=== PATIENT | male | born 1970 | race Caucasian/White ===

== ENCOUNTER 2017-01-31 15:11 | Emergency (ER) | payer OTHER ==
[~2017-01-31] VITALS: Ht 167.6 cm; Wt 83.0 kg
[~2017-01-31 15:11] MED LIST: ANAPROX275 MG PO; BENTYL20 MG PO; BUTRANS1 EAC1 TD; HYDROCODON-ACE1 EAC7 PO; IBU-200200 MG PO; LISINOPRIL10 MG PO; MOBIC15 MG PO; MOTRIN600 MG PO; NO HOME MEDICATIONS; OXYCODONE-APAP1 EAC6 PO; PEN-VEE K,VEET500 MG PO; PERCOCET 7.51 TABLET PO; VITAMINS; ZOFRAN4 MG PO
[2017-01-31 15:49] LABS: HEMATOCRIT 43.4 % (38.0-50.0); MCH 30.3 PG (29.0-34.0); MCV 86.6 FL (86-99); MEAN PLAT.VOLUME 9.3 uM^3 (9.0-12.4); PLATELET COUNT 324 K/uL (156-360); RBC DIS.WIDTH-CV 11.9 % (11.8-14.6); RBC DIS.WIDTH-SD 38.1 % (39-53); RED BLOOD COUNT 5.01 M/uL (4.00-5.50); WHITE BLOOD COUNT 7.1 K/uL (4.1-10.2)
[2017-01-31 15:59] LABS: CHLORIDE 111 mEq/L (99-109); POTASSIUM 4.2 mEq/L (3.7-5.4); SODIUM 142 mEq/L (136-147)
[2017-01-31 16:01] LABS: GLUCOSE 114 mg/dL (70-99)
[2017-01-31 16:02] LABS: ANION GAP 10 MEQ/L (2-14)
[2017-01-31 16:04] LABS: ALKALINE PHOSPHATASE 72 IU/L (3-129); GFR ESTIMATE (CALCULATED) > 59 mL/min/
[2017-01-31 16:05] LABS: UREA NITROGEN (BUN) 10 mg/dL (9-23)
[2017-01-31 16:08] LABS: LIPASE 71 U/L (1.0-51.0)
[2017-01-31 16:44] LABS: TOTAL BILIRUBIN 0.4 mg/dL (0.0-1.0)
[2017-01-31 17:41] LABS: ADD MIUA? YES; BILIRUBIN NEGATIVE; BLOOD NEGATIVE; COLOR AMBER ((YELLOW)); GLUCOSE (STRIP) NEGATIVE; KETONES NEGATIVE; LEUKOCYTES NEGATIVE; NITRITE NEGATIVE; PROTEIN (STRIP) 30; SPECIFIC GRAVITY 1.025 (1.000-1.030); UROBILINOGEN 0.2 MG/DL (0.2-1.0)
[2017-01-31 17:46] LABS: BACTERIA RARE /HPF; EPITHELIAL CELLS NONE SEEN /HPF; MUCUS 3+ /LPF; RED BLOOD CELLS 0-5 /HPF (0-5); UCUL ADDED? NO; WHITE BLOOD CELLS 0-5 /HPF (0-5)
[2017-01-31] MEDS ORDERED: ZOFRAN4 MG PO (19:17)
[2017-01-31 20:03] VITALS: BP 145/65
== END 2017-01-31 20:04 | disposition home or self-care (01) ==
LOC: EME 15:11
PROVIDERS: Nurse Practitioner Family
DX: R10.9 Unspecified abdominal pain (principal); B17.9 Acute viral hepatitis, unspecified; N50.812 Left testicular pain; I10 Essential (primary) hypertension
CPT/HCPCS: 74177; 76870; 80053; 81003; 83690; 85027; 99281; 99285; J1885; J2270; J2405; J7030

== ENCOUNTER 2017-02-27 11:59 | Emergency (ER) | payer OTHER ==
[~2017-02-27] VITALS: Ht 167.6 cm; Wt 81.9 kg
[2017-02-27 13:28] LABS: BILIRUBIN NEGATIVE; BLOOD NEGATIVE; COLOR YELLOW ((YELLOW)); GLUCOSE (STRIP) NEGATIVE; KETONES NEGATIVE; LEUKOCYTES NEGATIVE; NITRITE NEGATIVE; PROTEIN (STRIP) NEGATIVE; SPECIFIC GRAVITY 1.011 (1.000-1.030); UROBILINOGEN 0.2 MG/DL (0.2-1.0)
[2017-02-27 13:33] LABS: ADD MIUA? NO; UCUL ADDED? NO
[2017-02-27 14:00] LABS: HEMATOCRIT 40.8 % (38.0-50.0); MCH 30.2 PG (29.0-34.0); MCHC 34.3 G/DL (30.0-36.0); MCV 87.9 FL (86-99); MEAN PLAT.VOLUME 9.4 uM^3 (9.0-12.4); PLATELET COUNT 333 K/uL (156-360); RBC DIS.WIDTH-CV 12.1 % (11.8-14.6); RBC DIS.WIDTH-SD 39.1 % (39-53); RED BLOOD COUNT 4.64 M/uL (4.00-5.50); WHITE BLOOD COUNT 7.6 K/uL (4.1-10.2)
[2017-02-27 14:08] LABS: CHLORIDE 104 mEq/L (99-109); SODIUM 136 mEq/L (136-147)
[2017-02-27 14:09] LABS: GLUCOSE 96 mg/dL (70-99)
[2017-02-27 14:11] LABS: ANION GAP 9 MEQ/L (2-14)
[2017-02-27 14:13] LABS: GFR ESTIMATE (CALCULATED) > 59 mL/min/
[2017-02-27 14:14] LABS: UREA NITROGEN (BUN) 13 mg/dL (9-23)
[2017-02-27 14:37] VITALS: BP 126/72
[2017-02-28 13:22] LABS: CHLAMYDIA TRACHOMATIS NEGATIVE; NEISSERIA GONORRHOEAE NEGATIVE
== END 2017-02-27 14:38 | disposition home or self-care (01) ==
LOC: EME 11:59
PROVIDERS: Physician Assistant
DX: R30.0 Dysuria (principal); I10 Essential (primary) hypertension
CPT/HCPCS: 80048; 81003; 85027; 87086; 87491; 87591; 99281; 99284; J0696

== ENCOUNTER 2017-03-07 11:04 | Emergency (ER) | payer OTHER ==
[~2017-03-07] VITALS: Ht 167.6 cm; Wt 81.1 kg
[2017-03-07 12:14] LABS: HEMATOCRIT 44.3 % (38.0-50.0); MCH 30.2 PG (29.0-34.0); MCHC 34.1 G/DL (30.0-36.0); MCV 88.6 FL (86-99); MEAN PLAT.VOLUME 9.6 uM^3 (9.0-12.4); PLATELET COUNT 331 K/uL (156-360); RBC DIS.WIDTH-CV 12.3 % (11.8-14.6); WHITE BLOOD COUNT 8.4 K/uL (4.1-10.2)
[2017-03-07 12:23] LABS: CHLORIDE 107 mEq/L (99-109); POTASSIUM 4.1 mEq/L (3.7-5.4); SODIUM 141 mEq/L (136-147)
[2017-03-07 12:25] LABS: GLUCOSE 130 mg/dL (70-99)
[2017-03-07 12:27] LABS: ANION GAP 8 MEQ/L (2-14)
[2017-03-07 12:29] LABS: GFR ESTIMATE (CALCULATED) > 59 mL/min/
[2017-03-07 12:30] LABS: UREA NITROGEN (BUN) 12 mg/dL (9-23)
[2017-03-07 14:05] LABS: ADD MIUA? YES; BILIRUBIN NEGATIVE; BLOOD NEGATIVE; COLOR AMBER ((YELLOW)); GLUCOSE (STRIP) NEGATIVE; KETONES 5; LEUKOCYTES NEGATIVE; NITRITE NEGATIVE; PROTEIN (STRIP) 100; SPECIFIC GRAVITY 1.026 (1.000-1.030); UROBILINOGEN 0.2 MG/DL (0.2-1.0)
[2017-03-07 14:23] LABS: BACTERIA RARE /HPF; CELLULAR CASTS 0-5 /LPF; EPITHELIAL CELLS NONE SEEN /HPF; MUCUS 4+ /LPF; RED BLOOD CELLS 0-5 /HPF (0-5); UCUL ADDED? NO; WHITE BLOOD CELLS 0-5 /HPF (0-5)
[2017-03-07] MEDS ORDERED: TORADOL10 MG PO (16:35)
[2017-03-07] MEDS ORDERED: BACTRIM,SEPT1 TABLET PO (16:35)
[2017-03-07 17:16] VITALS: BP 110/68
== END 2017-03-07 17:17 | disposition home or self-care (01) ==
LOC: EME 11:04
DX: R30.0 Dysuria (principal); R10.9 Unspecified abdominal pain; I10 Essential (primary) hypertension; G89.29 Other chronic pain
CPT/HCPCS: 74177; 80048; 81003; 85027; 87086; 99281; 99285; J1885; J3010; J7030

== ENCOUNTER 2017-09-05 02:39 | Emergency (ER) | payer OTHER ==
[~2017-09-05] VITALS: Ht 167.6 cm; Wt 89.9 kg
[~2017-09-05 02:39] MED LIST changes: +BACTRIM,SEPT1 TABLET PO; +DIFLUCAN200 MG PO; +TORADOL10 MG PO
[2017-09-05 02:49] VITALS: BP 120/70
== END 2017-09-05 04:47 | disposition left against medical advice (07) ==
LOC: EME 02:39
DX: R00.2 Palpitations (principal); Z53.21 Procedure and treatment not carried out due to patient leaving prior to being seen by health care provider
CPT/HCPCS: 80053; 83690; 85027; 93005

== ENCOUNTER 2017-10-23 03:14 | Emergency (ER) | payer SELFPAY ==
[~2017-10-23] VITALS: Ht 167.6 cm; Wt 86.1 kg
[2017-10-23 03:54] LABS: BASOPHIL (%) 0.5 % (0-1); EOSINOPHIL (%) 1.6 % (0-5); EOSINOPHIL COUNT 0.1 K/uL (0-0.3); HEMATOCRIT 41.7 % (38.0-50.0); HEMOGLOBIN 14.5 G/DL (12.5-16.6); IMMATURE GRANULOCYTE (%) 0.2 % (0.0-0.7); LYMPHOCYTE (%) 35.6 % (15-42); LYMPHOCYTE COUNT 2.3 K/uL (1.0-2.8); MCH 30.5 PG (29.0-34.0); MCHC 34.8 G/DL (30.0-36.0); MCV 87.6 FL (86-99); MONOCYTE (%) 12.6 % (3-12); MONOCYTE COUNT 0.8 K/uL (0-0.8); NEUTROPHIL (%) 49.5 % (45-76); NEUTROPHIL COUNT 3.2 K/uL (1.8-6.4); PLATELET COUNT 271 K/uL (156-360); RBC DIS.WIDTH-CV 12.3 % (11.8-14.6); RBC DIS.WIDTH-SD 39.5 % (39-53); RED BLOOD COUNT 4.76 M/uL (4.00-5.50); WHITE BLOOD COUNT 6.4 K/uL (4.1-10.2)
[2017-10-23 04:04] LABS: ALBUMIN 4.1 g/dL (3.2-4.8); CHLORIDE 105 mEq/L (99-109); SODIUM 138 mEq/L (136-147)
[2017-10-23 04:06] LABS: GLUCOSE 94 mg/dL (70-99); TOTAL PROTEIN 7.2 g/dL (6.4-8.3)
[2017-10-23 04:08] LABS: TOTAL BILIRUBIN 0.6 mg/dL (0.0-1.0)
[2017-10-23 04:10] LABS: ALKALINE PHOSPHATASE 65 IU/L (3-129); CREATININE 0.9 mg/dL (0.6-1.3); GFR ESTIMATE (CALCULATED) > 59 mL/min/ (58.99-99999)
[2017-10-23 04:11] LABS: UREA NITROGEN (BUN) 8 mg/dL (9-23)
[2017-10-23 04:12] LABS: AST (GOT) 36 IU/L (2-34)
[2017-10-23 04:13] LABS: ALT (GPT) 55 IU/L (3-49)
[2017-10-23 04:15] LABS: TROP-I INTERPRETATION NEGATIVE; TROPONIN-I 0.02 ng/mL (0.0-0.30)
[2017-10-23] MEDS ORDERED: ACYCLOVIR400 MG PO (05:35)
[2017-10-23] MEDS ORDERED: PREDNISONE20 MG PO (05:35)
[2017-10-23 05:50] VITALS: BP 124/76
== END 2017-10-23 05:51 | disposition home or self-care (01) ==
LOC: EME 03:14
PROVIDERS: Emergency Medicine
DX: R20.0 Anesthesia of skin (principal); I10 Essential (primary) hypertension; G89.29 Other chronic pain; Z79.891 Long term (current) use of opiate analgesic
CPT/HCPCS: 70450; 70486; 80053; 84484; 85025; 93005; 99281; 99284

== ENCOUNTER 2018-01-09 14:01 | Emergency (ER) | payer OTHER ==
[~2018-01-09] VITALS: Ht 167.6 cm; Wt 85.0 kg
[~2018-01-09 14:01] MED LIST changes: +ACYCLOVIR400 MG PO; +PREDNISONE20 MG PO
[2018-01-09 14:03] VITALS: BP 134/84
[2018-01-09 14:27] LABS: APPEARANCE CLEAR ((CLEAR)); BILIRUBIN NEGATIVE; BLOOD NEGATIVE; COLOR YELLOW ((YELLOW)); GLUCOSE (STRIP) NEGATIVE; KETONES NEGATIVE; LEUKOCYTES NEGATIVE; NITRITE NEGATIVE; PROTEIN (STRIP) 30; SPECIFIC GRAVITY 1.023 (1.000-1.030); UROBILINOGEN 0.2 MG/DL (0.2-1.0)
[2018-01-09 14:56] LABS: CHLORIDE 105 mEq/L (99-109); POTASSIUM 4.7 mEq/L (3.7-5.4); SODIUM 140 mEq/L (136-147)
[2018-01-09 14:58] LABS: GLUCOSE 98 mg/dL (70-99)
[2018-01-09 15:01] LABS: CREATININE 0.9 mg/dL (0.6-1.3); GFR ESTIMATE (CALCULATED) > 59 mL/min/ (58.99-99999)
[2018-01-09 15:02] LABS: UREA NITROGEN (BUN) 10 mg/dL (9-23)
[2018-01-09] MEDS ORDERED: FLEXERIL10 MG PO (15:22)
[2018-01-09] MEDS ORDERED: MOTRIN600 MG PO (15:22)
== END 2018-01-09 16:07 | disposition home or self-care (01) ==
LOC: EME 14:01
PROVIDERS: Physician Assistant
DX: R10.9 Unspecified abdominal pain (principal); R19.7 Diarrhea, unspecified; I10 Essential (primary) hypertension; G89.29 Other chronic pain; Z87.442 Personal history of urinary calculi
CPT/HCPCS: 74176; 80048; 81003; 99281; 99284